=== PATIENT | female | born 1960 | race Caucasian/White ===

== ENCOUNTER 2017-02-28 14:04 | Emergency (ER) | payer MEDICAID ==
[2017-02-28 15:01] VITALS: BP 111/73
[2017-02-28 16:07] LABS: Basophils % (Auto) 0.9 % (0.0-1.8); Eosinophils % (Auto) 2.4 % (0.0-4.3); Hematocrit 37.6 % (30.3-42.9); Hemoglobin 12.6 gm/dl (10.1-14.3); Mean Corpuscular HGB Conc 34 % (30-34); Mean Corpuscular Hemoglobin 29 pg (28-32); Mean Corpuscular Volume 87 fl (79-97); Platelet Count 309 K/mm3 (140-440); Red Blood Count 4.34 M/mm3 (3.65-5.03); Red Cell Distribution Width 14.4 % (13.2-15.2); White Blood Count 5.6 K/mm3 (4.5-11.0)
[2017-02-28 16:20] LABS: Alanine Aminotransferase 14 units/L (7-56); Albumin 4.1 g/dL (3.9-5); Albumin/Globulin Ratio 1.4 %; Alkaline Phosphatase 87 units/L (35-129); Anion Gap 17 mmol/L; BUN/Creatinine Ratio 23.33; Blood Urea Nitrogen 14 mg/dL (7-17); Calcium 9.3 mg/dL (8.4-10.2); Carbon Dioxide 27 mmol/L (22-30); Chloride 102.8 mmol/L (98-107); Glucose 82 mg/dL (65-100); Lipase 30 units/L (13-60); Potassium 5.3 mmol/L (3.6-5.0); Sodium 141 mmol/L (137-145)
[2017-02-28 16:33] LABS: Bilirubin,Urine NEG (Negative); Blood,Urine NEG (Negative); Ketones,Urine TR mg/dL (Negative); Leukocyte Esterase,Urine SM (Negative); Mucus,Urine FEW /HPF; Nitrite,Urine NEG (Negative); Protein,Urine <15 mg/dL mg/dL (Negative); Urobilinogen,Urine < 2.0 mg/dL (<2.0)
== END 2017-02-28 15:00 | disposition left against medical advice (07) ==
LOC: ED 14:04
DX: Z53.21 Procedure and treatment not carried out due to patient leaving prior to being seen by health care provider (principal)
CPT/HCPCS: 36415; 80053; 81001; 83690; 85025

== ENCOUNTER 2017-07-08 10:39 | Emergency (ER) | payer MEDICAID ==
--- NOTE | 2017-07-08 12:32 | XRay Report ---
RIGHT WRIST RADIOGRAPHS INDICATION: Fall, injury, edema. COMPARISON: None similar. FINDINGS: AP, lateral and oblique right wrist radiographs, 4 projections demonstrate intact carpal rows and also remainder imaged bones. Diffuse soft tissue swelling noted, greatest/moderate dorsally. CONCLUSION: Right wrist soft tissue swelling/injury without acute bony abnormality. Please correlate. Thank you for the opportunity to participate in this patient's care.
--- NOTE | 2017-07-08 15:52 | Emergency Department Report ---
HPI - General Chief Complaint: Extremity Injury, Upper Time Seen by Provider: 07/08/17 15:50 - HPI HPI: Patient is a 57-year-old female with no prior medical history who presents to ED complaining of right wrist pain status post fall that happened 8 days ago. Patient states last Saturday she was at home when her Foot gave out on her and fell, landed and hit her wrist. Patient complains of right wrist pain. Patient states is throbbing in nature and noticed some swelling around her right wrist after the fall. Patient states she does rapidly and ice compressions application daily. Patient states the pain isn't going away so she wanted to have it looked at. ED Past Medical Hx - Past Medical History Previous Medical History?: Yes Additional medical history: NERVE DAMAGE R FOOT - Surgical History Past Surgical History?: Yes Additional Surgical History: FOOT SURGERY, CSECTION - Social History Smoking Status: Current Every Day Smoker Substance Use Type: None - Medications Home Medications: Home Medications Medication Instructions Recorded Confirmed Last Taken Type Ibuprofen [Motrin 800 MG tab] 800 mg PO TID #30 tablet 07/08/17 Unknown Rx ED Review of Systems ROS: Stated complaint: HAND INJURY Other details as noted in HPI Constitutional: denies: chills, fever Eyes: denies: eye pain, eye discharge, vision change ENT: denies: ear pain, throat pain Respiratory: denies: cough, shortness of breath, wheezing Cardiovascular: denies: chest pain, palpitations Endocrine: no symptoms reported Gastrointestinal: denies: abdominal pain, nausea, diarrhea Genitourinary: denies: urgency, dysuria, discharge Musculoskeletal: arthralgia. denies: back pain, joint swelling Skin: denies: rash, lesions Neurological: denies: headache, weakness, paresthesias Psychiatric: denies: anxiety, depression Hematological/Lymphatic: denies: easy bleeding, easy bruising Physical Exam - Physical Exam Vital Signs: Vital Signs 07/08/17 11:40 Temperature 98.2 F Pulse Rate 61 Respiratory 16 Rate Blood Pressure 116/62 O2 Sat by Pulse 97 Oximetry Physical Exam: GENERAL: Alert and oriented x3, no apparent distress, Normal Gait, atraumatic. HEAD: Head is normocephalic and a-traumatic. LUNGS: Symetrical with respiration, No wheezing, no rales or crackles, CTAB. HEART: S1, S2 present, regular rate and rhythm without murmur, no rubs, no gallops. Non tender to palpation EXTREMITIES/MUSCULOSKELETAL: No cyanosis, clubbing, rash, lesions or edema. Full ROM on all other extremities bilaterally. UE/LE Pulses 2+ bilaterally. LE and UE 5+ strength bilaterally, presents tender to palpation. Full range of motion. Pain with upper abdominal movement of the wrist, none erythematous, non -swelling NEUROLOGIC: The patient is cooperative with no focal neurologic deficits. Normal speech. Normal sensation in bilateral upper and lower extremities, No loss of sensation, SKIN: Warm and dry, No lesions, No ulceration or induration present. ED Course Vital Signs 07/08/17 11:40 Temperature 98.2 F Pulse Rate 61 Respiratory 16 Rate Blood Pressure 116/62 O2 Sat by Pulse 97 Oximetry ED Medical Decision Making - Radiology Data Radiology results: report reviewed, image reviewed Fluoro Time In Minutes: RIGHT WRIST RADIOGRAPHS INDICATION: Fall, injury, edema. COMPARISON: None similar. FINDINGS: AP, lateral and oblique right wrist radiographs, 4 projections demonstrate intact carpal rows and also remainder imaged bones. Diffuse soft tissue swelling noted, greatest/moderate dorsally. CONCLUSION: Right wrist soft tissue swelling/injury without acute bony abnormality. Please correlate. Thank you for the opportunity to participate in this patient's care. Transcribed By: RS Dictated By: BRAYDON MENDOZA MD Electronically Authenticated By: BRAYDON MENDOZA MD Signed Date/Time: 07/08/171223 DD/ 122 TD/TT: 07/08/17 1224 - Medical Decision Making 57-year-old female presents with wrist arthralgia ED course: Patient received Motrin in the ED X-rays of the wrist ordered. X-ray shows no acute abnormalities Patient given a wrist brace to go home with and follow up with orthopedic I discussed with the patient that x-ray shows no fractures but his pain persists to follow up with orthopedic as referred Patient states she has an orthopedic appointment next week. Vital signs are normal. Patient is in no acute or respiratory distress. Critical care attestation.: If time is entered above; I have spent that time in minutes in the direct care of this critically ill patient, excluding procedure time. ED Disposition Clinical Impression: Wrist pain, right Fall at home Qualifiers: Encounter type: initial encounter Qualified Code(s): W19.XXXA - Unspecified fall, initial encounter Disposition: DC-01 TO HOME OR SELFCARE Is pt being admited?: No Does the pt Need Aspirin: No Condition: Stable Instructions: Wrist Injury (ED), Arthralgia (ED), Wrist Sprain (ED) Additional Instructions: Make sure to follow up with the primary care physician as discussed. Take all your medications as you've been prescribed. If you have any worsening symptoms or develop new symptoms please return to ED immediately. Prescriptions: Ibuprofen [Motrin 800 MG tab] 800 mg PO TID #30 tablet Referrals: DUGLAS DELACRUZ MD [Staff Physician] - 3-5 Days PEGGY HAJI MD [Staff Physician] - 3-5 Days Forms: Work/School Release Form(ED) Time of Disposition: 16:41
[2017-07-08] MEDS ORDERED: MOTRIN PO ONE (16:00)
[2017-07-08 17:20] VITALS: BP 106/67
== END 2017-07-08 17:19 | disposition home or self-care (01) ==
LOC: ED 10:39
DX: M25.531 Pain in right wrist (principal); F17.200 Nicotine dependence, unspecified, uncomplicated